=== PATIENT | male | born 2000 | race Caucasian/White ===

== ENCOUNTER 2023-11-10 22:46 | Inpatient (IN) | payer BC, OTHER ==
[2023-11-11] MEDS ORDERED: hydrALAZINE 20 MG/ML VIAL SLOW IVP PRN (00:59)
[2023-11-11] MEDS ORDERED: TETANUS, DIPHTHERIA TOX,ADULT (TDVAX) 0.5 ML VIAL IM ONE (00:59)
[2023-11-11] MEDS ORDERED: Dextrose 5% in Water 1,000 ML IV PRN (00:59)
[2023-11-11] MEDS ORDERED: Glucagon 1 MG/ML KIT IM PRN (00:59)
[2023-11-11] MEDS ORDERED: Dextrose 50% Abboject 50 ML SYRINGE SLOW IVP PRN (00:59)
[2023-11-11] MEDS: Lactated Ringer's 1,000 ML IV SCH ×3 (01:36→22:33)
[2023-11-11] MEDS: Morphine 4 MG/ML VIAL SLOW IVP PRN ×7 (01:36→21:09)
[2023-11-11] MEDS: HYDROcodone/Acetaminophen 7.5/325 mg Tablet PO PRN ×4 (02:36→22:40)
[2023-11-11 05:12] LABS: #Basophils 0.1 thou/uL (0.0-0.2); #Eosinphils 0.1 thou/uL (0.0-0.7); #Monocytes 0.9 thou/uL (0.11-0.59); #Neutrophils 8.1 thou/uL (1.40-6.50); %Basophils 0.6 % (0.0-1.0); %Eosinophils 1.2 % (0.0-10.0); %Lymphocytes 19.4 % (21.0-51.0); %Neutrophils 70.5 % (42.0-75.0); Hematocrit 40.5 % (42.0-52.0); Hemoglobin 14.2 g/dL (14.0-18.0); Mean Corpuscular HGB CONC 35.1 g/dL (32.0-36.0); Mean Corpuscular Hemoglobin 31.2 pg (27.0-31.0); Mean Platelet Volume 9.6 fL (7.4-10.4); Platelet Count 273 10x3/uL (130-400); RBC Distribution Width 11.6 % (11.5-14.5); Red Blood Cell (RBC) Count 4.55 mill/uL (4.70-6.10); White Blood Cell (WBC) Count 11.6 10x3/uL (4.8-10.8)
[2023-11-11 05:50] LABS: ALT (SGPT) 20 U/L (8-55); AST (SGOT) 25 U/L (5-34); Albumin 3.8 g/dL (3.5-5.0); Alkaline Phosphatase 61 U/L (40-110); Anion Gap 12 mmol/L (10-20); BUN (Urea Nitrogen) 9 mg/dL (8.9-20.6); Bilirubin, Total 0.5 mg/dL (0.2-1.2); Calc. Creatinine Clearance 0 mL/min (70-130); Calcium 8.8 mg/dL (7.8-10.44); Carbon Dioxide 24 mmol/L (22-29); Chloride 106 mmol/L (98-107); Estimated GFR 103; Globulin 2.7 g/dL (2.4-3.5); Glucose 109 mg/dL (70-105); Potassium 3.8 mmol/L (3.5-5.1); Protein, Total 6.5 g/dL (6.0-8.3); Sodium 138 mmol/L (136-145)
[2023-11-11] MEDS ORDERED: traMADol HCl 50 MG TAB PO PRN (07:52)
[2023-11-11] MEDS ORDERED: traMADol HCl 50 MG TAB PO STA (07:53)
[2023-11-11] MEDS ORDERED: FLU VACC QS2023-24(6MOS UP)/PF 60 MCG/0.5 ML SYRINGE IM ONE (09:00)
[2023-11-11] MEDS ORDERED: Cyclobenzaprine 10 MG TAB PO PRN (09:40)
[2023-11-11] MEDS ORDERED: Cyclobenzaprine 10 MG TAB PO SCH (09:45)
[2023-11-11] MEDS: traMADol HCl 50 MG TAB PO PRN ×2 (10:07→20:04)
[2023-11-11] MEDS: Famotidine/PF 20 mg/2ml Vial SLOW IVP SCH ×2 (10:08→20:04)
[2023-11-11] MEDS: Ondansetron PF 4 MG/2 ML Vial IVP PRN ×2 (10:22→16:59)
[2023-11-11] MEDS: Ketorolac Tromethamine 30 MG (1 mL) VIAL IVP PRN ×2 (13:38→20:05)
[2023-11-11] MEDS: Enoxaparin 40 MG (0.4 mL) SYRINGE SC SCH (16:48)
[2023-11-11] MEDS: Cyclobenzaprine 10 MG TAB PO SCH ×2 (16:48→20:04)
[2023-11-12] MEDS: Lactated Ringer's 1,000 ML IV SCH ×3 (00:09→20:28)
[2023-11-12] MEDS: Ondansetron PF 4 MG/2 ML Vial IVP PRN ×2 (00:09→10:11)
[2023-11-12] MEDS: Morphine 4 MG/ML VIAL SLOW IVP PRN ×2 (00:09→02:19)
[2023-11-12] MEDS: Prochlorperazine Edisylate 10 MG in Sodium Chloride 0.9% 50 ML IVPB PRN (03:47)
[2023-11-12] MEDS: HYDROcodone/Acetaminophen 7.5/325 mg Tablet PO PRN (03:50)
[2023-11-12] MEDS ORDERED: Polyethylene Glycol 3350 17 GM Packet PO PRN (04:40)
[2023-11-12] MEDS ORDERED: Acetaminophen 500 MG TAB PO SCH ×2 (08:30→15:00)
[2023-11-12] MEDS ORDERED: HYDROcodone/Acetaminophen 7.5/325 mg Tablet PO PRN (08:32)
[2023-11-12] MEDS ORDERED: Senokot S 8.6-50 MG TAB PO SCH (09:00)
[2023-11-12] MEDS: Ketorolac Tromethamine 30 MG (1 mL) VIAL IVP PRN (09:50)
[2023-11-12] MEDS ORDERED: Piperacillin/Tazobactam 3.375 GM in Sodium Chloride 0.9% 100 ML IVPB SCH ×3 (10:00→16:00)
[2023-11-12] MEDS ORDERED: Lactated Ringer's 1,000 ML IV SCH (10:00)
[2023-11-12] MEDS ORDERED: Morphine 4 MG/ML VIAL SLOW IVP PRN (10:04)
[2023-11-12 10:21] LABS: #Monocytes 1.6 thou/uL (0.11-0.59); #Neutrophils 12.6 thou/uL (1.40-6.50); %Basophils 0.1 % (0.0-1.0); %Lymphocytes 3.7 % (21.0-51.0); %Monocytes 10.6 % (0.0-10.0); %Neutrophils 85.3 % (42.0-75.0); Hematocrit 44.4 % (42.0-52.0); Hemoglobin 15.8 g/dL (14.0-18.0); Mean Corpuscular HGB CONC 35.6 g/dL (32.0-36.0); Mean Corpuscular Hemoglobin 31.7 pg (27.0-31.0); Mean Platelet Volume 9.5 fL (7.4-10.4); Platelet Count 258 10x3/uL (130-400); RBC Distribution Width 11.4 % (11.5-14.5); Red Blood Cell (RBC) Count 4.99 mill/uL (4.70-6.10); White Blood Cell (WBC) Count 14.8 10x3/uL (4.8-10.8)
[2023-11-12 10:46] LABS: ALT (SGPT) 22 U/L (8-55); AST (SGOT) 23 U/L (5-34); Albumin 3.7 g/dL (3.5-5.0); Alkaline Phosphatase 60 U/L (40-110); Anion Gap 14 mmol/L (10-20); BUN (Urea Nitrogen) 16 mg/dL (8.9-20.6); Bilirubin, Total 1.4 mg/dL (0.2-1.2); Calc. Creatinine Clearance 0 mL/min (70-130); Calcium 8.9 mg/dL (7.8-10.44); Carbon Dioxide 21 mmol/L (22-29); Chloride 99 mmol/L (98-107); Estimated GFR 89; Globulin 2.9 g/dL (2.4-3.5); Glucose 166 mg/dL (70-105); Potassium 4.3 mmol/L (3.5-5.1); Protein, Total 6.6 g/dL (6.0-8.3); Sodium 130 mmol/L (136-145)
[2023-11-12] MEDS ORDERED: Bupivacaine PF 0.5% 30 ML VIAL ONE (11:42)
[2023-11-12] MEDS ORDERED: Midazolam HCl 2 mg/2 ml Vial ONE ×2 (11:49→11:51)
[2023-11-12] MEDS ORDERED: Fentanyl 250 MCG/5 ML VIAL ONE (11:50)
[2023-11-12] MEDS ORDERED: PROPOFOL 20 ML ONE (11:52)
[2023-11-12] MEDS ORDERED: Sodium Chloride 0.9% 100 ML ONE (11:58)
[2023-11-12] MEDS ORDERED: EPINEPHrine 1 MG/ML VIAL ONE (11:58)
[2023-11-12] MEDS ORDERED: Piperacillin/Tazobactam 3.375 GM VIAL ONE (11:58)
[2023-11-12] MEDS ORDERED: SUCCINYLCHOLINE/SOD CL,ISO/PF 200 MG/10 ML SYRINGE FS ONE (12:20)
[2023-11-12] MEDS ORDERED: Rocuronium Bromide 10 MG/ML (10ML VIAL) ONE (12:20)
[2023-11-12] MEDS ORDERED: Ondansetron PF 4 MG/2 ML Vial ONE (12:45)
[2023-11-12] MEDS ORDERED: diphenhydrAMINE 50 MG/ML VIAL IVP PRN (13:20)
[2023-11-12] MEDS ORDERED: diphenhydrAMINE 25 MG CAP PO PRN (13:20)
[2023-11-12] MEDS ORDERED: Naloxone HCl 0.4 mg/ml Vial IV PRN (13:20)
[2023-11-12] MEDS ORDERED: Ondansetron PF 4 MG/2 ML Vial IVP PRN (13:20)
[2023-11-12] MEDS ORDERED: Promethazine HCl 25 MG/ML VIAL IM PRN ×2 (13:20→14:01)
[2023-11-12] MEDS ORDERED: HYDROmorphone/PF 10 MG in Sodium Chloride 0.9% 99 ML IV PRN ×2 (13:20→13:26)
[2023-11-12] MEDS ORDERED: diphenhydrAMINE 50 MG/ML VIAL IM PRN (13:20)
[2023-11-12] MEDS ORDERED: Communication Order-Pharmacy FS SCH (13:30)
[2023-11-12] MEDS ORDERED: SUGAMMADEX SODIUM 200 MG/2 ML VIAL ONE (13:38)
[2023-11-12] MEDS ORDERED: Ondansetron HCl/PF 4 MG/2 ML Vial IVP PRN (14:01)
[2023-11-12] MEDS ORDERED: HYDROmorphone 2 MG/ML VIAL SLOW IVP PRN (14:01)
[2023-11-12] MEDS: Cyclobenzaprine 10 MG TAB PO SCH ×2 (20:04→20:30)
[2023-11-12] MEDS: Enoxaparin 40 MG (0.4 mL) SYRINGE SC SCH (20:04)
[2023-11-12 20:21] LABS: Hematocrit 41.6 % (42.0-52.0); Manual Diff?? YES; Mean Corpuscular HGB CONC 36.1 g/dL (32.0-36.0); Mean Corpuscular Hemoglobin 31.7 pg (27.0-31.0); Mean Corpuscular Volume 87.9 fl (78.0-98.0); Mean Platelet Volume 9.3 fL (7.4-10.4); Platelet Count 231 10x3/uL (130-400); RBC Distribution Width 11.5 % (11.5-14.5); Red Blood Cell (RBC) Count 4.73 mill/uL (4.70-6.10); White Blood Cell (WBC) Count 10.8 10x3/uL (4.8-10.8)
[2023-11-12 20:23] LABS: Delete Auto Diff?? YES
[2023-11-12 20:42] LABS: Band 23 % (5-11); CellaVision Operator ID LAB.KB; Large Platelets 2.9 % (0-5); Lymphocytes 4 % (21-51); Monocytes 12 % (0-10); Neutrophil 57 % (42-75); Platelet Adequacy Comment Platelets Normal; Polychromasia SLIGHT = 2-3 cells HPF (0-2); Reactive Lymphocytes 4 % (0-10); Smudge Cells 4.8 %; Total Cell Count 104
[2023-11-13] MEDS: Lactated Ringer's 1,000 ML IV SCH ×3 (03:08→23:01)
[2023-11-13 04:55] LABS: Hematocrit 40.1 % (42.0-52.0); Hemoglobin 14.2 g/dL (14.0-18.0); Manual Diff?? YES; Mean Corpuscular HGB CONC 35.4 g/dL (32.0-36.0); Mean Corpuscular Hemoglobin 31.8 pg (27.0-31.0); Mean Corpuscular Volume 89.7 fl (78.0-98.0); Mean Platelet Volume 9.7 fL (7.4-10.4); Platelet Count 218 10x3/uL (130-400); RBC Distribution Width 11.6 % (11.5-14.5); Red Blood Cell (RBC) Count 4.47 mill/uL (4.70-6.10); White Blood Cell (WBC) Count 12.5 10x3/uL (4.8-10.8)
[2023-11-13 04:57] LABS: Delete Auto Diff?? YES
[2023-11-13 05:22] LABS: Band 48 % (5-11); CellaVision Operator ID lab.abc; Eosinophils 1 % (0-10); Lymphocytes 7 % (21-51); Monocytes 6 % (0-10); Neutrophil 39 % (42-75); Platelet Adequacy Comment Platelets Normal; RBC Morphology Within Normal Limits; Smudge Cells 7.9 %; Total Cell Count 101
[2023-11-13 05:28] LABS: ALT (SGPT) 21 U/L (8-55); AST (SGOT) 25 U/L (5-34); Albumin 3.2 g/dL (3.5-5.0); Alkaline Phosphatase 54 U/L (40-110); Anion Gap 11 mmol/L (10-20); BUN (Urea Nitrogen) 12 mg/dL (8.9-20.6); Bilirubin, Total 1.5 mg/dL (0.2-1.2); Calc. Creatinine Clearance 0 mL/min (70-130); Calcium 8.3 mg/dL (7.8-10.44); Carbon Dioxide 28 mmol/L (22-29); Chloride 100 mmol/L (98-107); Estimated GFR 103; Globulin 2.7 g/dL (2.4-3.5); Glucose 110 mg/dL (70-105); Protein, Total 5.9 g/dL (6.0-8.3); Sodium 135 mmol/L (136-145)
[2023-11-13] MEDS: Enoxaparin 40 MG (0.4 mL) SYRINGE SC SCH (08:51)
[2023-11-13] MEDS: Cyclobenzaprine 10 MG TAB PO SCH ×3 (08:52→20:19)
[2023-11-13] MEDS: Pantoprazole 40 MG VIAL IVP SCH (08:52)
[2023-11-13] MEDS: Prochlorperazine Edisylate 10 MG in Sodium Chloride 0.9% 50 ML IVPB PRN (19:20)
[2023-11-14] MEDS: Lactated Ringer's 1,000 ML IV SCH ×4 (05:36→19:34)
[2023-11-14 06:40] LABS: Hematocrit 35.5 % (42.0-52.0); Hemoglobin 12.6 g/dL (14.0-18.0); Manual Diff?? YES; Mean Corpuscular HGB CONC 35.5 g/dL (32.0-36.0); Mean Corpuscular Volume 90.1 fl (78.0-98.0); Mean Platelet Volume 9.8 fL (7.4-10.4); Platelet Count 205 10x3/uL (130-400); RBC Distribution Width 11.3 % (11.5-14.5); Red Blood Cell (RBC) Count 3.94 mill/uL (4.70-6.10); White Blood Cell (WBC) Count 10.2 10x3/uL (4.8-10.8)
[2023-11-14 07:02] LABS: Delete Auto Diff?? YES
[2023-11-14 07:09] LABS: Anion Gap 13 mmol/L (10-20); BUN (Urea Nitrogen) 9 mg/dL (8.9-20.6); Calc. Creatinine Clearance 0 mL/min (70-130); Calcium 8.6 mg/dL (7.8-10.44); Carbon Dioxide 25 mmol/L (22-29); Chloride 101 mmol/L (98-107); Estimated GFR 126; Glucose 100 mg/dL (70-105); Potassium 3.8 mmol/L (3.5-5.1); Sodium 135 mmol/L (136-145)
[2023-11-14 07:50] LABS: Band 16 % (5-11); CellaVision Operator ID LAB.KW3; Eosinophils 1 % (0-10); Large Platelets 5.9 % (0-5); Lymphocytes 8 % (21-51); Monocytes 12 % (0-10); Neutrophil 63 % (42-75); Platelet Adequacy Comment Platelets Normal; Polychromasia SLIGHT = 2-3 cells HPF (0-2); Total Cell Count 101
[2023-11-14] MEDS: Pantoprazole 40 MG VIAL IVP SCH (09:32)
[2023-11-14] MEDS: Enoxaparin 40 MG (0.4 mL) SYRINGE SC SCH (09:32)
[2023-11-14] MEDS: Cyclobenzaprine 10 MG TAB PO SCH ×3 (09:34→21:20)
[2023-11-14] MEDS ORDERED: oxyCODONE 5 MG TAB PO PRN (18:24)
[2023-11-14] MEDS ORDERED: Acetaminophen 500 MG TAB PO SCH (18:30)
[2023-11-14] MEDS ORDERED: Phenol 177 ML BOT PO PRN (18:31)
[2023-11-15] MEDS: Acetaminophen 500 MG TAB PO SCH ×4 (00:13→17:55)
[2023-11-15] MEDS: Lactated Ringer's 1,000 ML IV SCH ×2 (05:30→13:07)
[2023-11-15] MEDS: Pantoprazole 40 MG VIAL IVP SCH (08:40)
[2023-11-15] MEDS: Enoxaparin 40 MG (0.4 mL) SYRINGE SC SCH (08:40)
[2023-11-15] MEDS: Cyclobenzaprine 10 MG TAB PO SCH ×3 (08:40→21:11)
[2023-11-16] MEDS: Acetaminophen 500 MG TAB PO SCH ×5 (00:16→23:51)
[2023-11-16] MEDS: oxyCODONE 5 MG TAB PO PRN (00:16)
[2023-11-16] MEDS: Pantoprazole 40 MG VIAL IVP SCH (08:48)
[2023-11-16] MEDS: Enoxaparin 40 MG (0.4 mL) SYRINGE SC SCH (08:48)
[2023-11-16] MEDS: Cyclobenzaprine 10 MG TAB PO SCH ×3 (08:48→22:10)
[2023-11-17] MEDS: Acetaminophen 500 MG TAB PO SCH ×2 (05:47→11:51)
[2023-11-17 07:34] VITALS: TEMP 98
[2023-11-17] MEDS: Enoxaparin 40 MG (0.4 mL) SYRINGE SC SCH (08:58)
[2023-11-17] MEDS: Cyclobenzaprine 10 MG TAB PO SCH (08:58)
[2023-11-17] MEDS: Pantoprazole 40 MG VIAL IVP SCH (08:59)
[2023-11-17] MEDS: oxyCODONE 5 MG TAB PO PRN (11:51)
[2023-11-17 12:39] VITALS: BP 140/90
== END 2023-11-17 14:50 | disposition home or self-care (01) | DRG 982 ==
LOC: SJJU 11-11 00:21
PROVIDERS: ADMIT Surgery; ATTEND Surgery
PROC: 0DTJ0ZZ Resection of Appendix, Open Approach (ICD-10-PCS; principal; 2023-11-12)
PROC: 0DB80ZZ Excision of Small Intestine, Open Approach (ICD-10-PCS; 2023-11-12)
PROC: 0WJG4ZZ Inspection of Peritoneal Cavity, Percutaneous Endoscopic Approach (ICD-10-PCS; 2023-11-12)
PROC: 3E033XZ Introduction of Vasopressor into Peripheral Vein, Percutaneous Approach (ICD-10-PCS; 2023-11-12)
DX: S32.011A Stable burst fracture of first lumbar vertebra, initial encounter for closed fracture (principal); K56.7 Ileus, unspecified; Q43.0 Meckel's diverticulum (displaced) (hypertrophic); R10.9 Unspecified abdominal pain; Z98.890 Other specified postprocedural states; V49.9XXA Car occupant (driver) (passenger) injured in unspecified traffic accident, initial encounter; R11.2 Nausea with vomiting, unspecified; R00.0 Tachycardia, unspecified
CPT/HCPCS: 36415; 71045; 72148; 80048; 80053; 85025; 88304; 93005; 93010; A4649; C1776; C9113; J0171; J0780; J1170; J1650; J1885; J2250; J2270; J2405; J2543; J2704; J3010; J3490; J7120; S0020; S0028

== ENCOUNTER 2023-11-25 11:05 | Outpatient (CLI) | payer BC | END 2023-11-25 11:06 | disposition home or self-care (01) | LOC: SCSRAD 11:05 | PROVIDERS: ATTEND Surgery | DX: S32.001A Stable burst fracture of unspecified lumbar vertebra, initial encounter for closed fracture (principal) | CPT/HCPCS: 72100 ==